=== PATIENT | male | born 1955 | race Caucasian/White ===

== ENCOUNTER → 2019-02-08 | Day surgery (SDC) | payer MEDICARE, OTHER ==
[2019-02-05 10:42] VITALS: BMI 30.2
[~2019-02-08] MED LIST: ALPRAZolam 0.25 MG TAB PO PRN; ALPRAZolam 0.5 MG TAB PO PRN; ASPIRIN 325 MG TAB PO STA; ATORVASTATIN 80 MG TAB PO STA; HEPARIN SODIUM 1,000 UN/ML (10ML VL) IV ONE; IOPAMIDOL-370 100ML BTL INJ ONE; IOPAMIDOL-370 50ML BTL INJ ONE; LIDOCAINE 1% INJ 10MG/ML (20 ML MDV) SQ ONE; MIDAZOLAM 2 MG/2 ML VIAL IVP ONE; NITROGLYCERIN SL TABS 0.4 MG TAB SUBLINGUAL PRN; SODIUM CHLORIDE 0.9% 1,000 ML IV SCH; SODIUM CHLORIDE 0.9% 1,000 ML in EMPTY BAG 1 BAG IV ONE; VERAPAMIL SYRINGE (5 MG/10 ML) INTRAARTER ONE; fentaNYL (PF) 50 MCG/ML 2 ML AMP IV ONE
[2019-02-08 07:09] VITALS: RESP 18; TEMP 98.2
--- NOTE | 2019-02-08 08:30 | CC ---
CARDIAC CATHETERIZATION REPORT DATE OF SERVICE: 02/08/2019 PROCEDURE: Left heart catheterization, coronary angiography and left ventriculography. PERFORMED BY: Dr. Sveta Delacruz. CLINICAL INFORMATION: Mr. Alejandro Etienne is a 63-year-old gentleman with a known history of hyperlipidemia, hypertension, and past history of smoking, who had an abnormal stress test and was advised coronary angiography. He had inferolateral reversible defect of a moderate size. Risks, benefits, options, rationale were explained. He was advised to have the procedure performed electively. He understood all details as did his and he was brought in for the procedure electively. PROCEDURE NOTE: Under local anesthesia and strict aseptic precautions, a 6-Spanish introducer was placed in the right radial artery. Using a JL3.5 and JR4.0 catheters, I performed coronary angiography and a pigtail catheter was used to perform an LV gram after checking LV pressures. The sheath was taken out and a TR band applied as per protocol. The saturation in the fingers of the right hand was 92%. Patient tolerated procedure well without complications. Results were discussed with the patient and family and I expect he will be discharged later on today and I will see him on Tuesday in the office on the at 4 p.m. CARDIAC CATHETERIZATION FINDINGS: The left ventricular end-diastolic pressure was about 8 mmHg without any gradient across aortic valve. CORONARY ANGIOGRAPHY FINDINGS: RIGHT CORONARY ARTERY: Technically a dominant vessel has no significant disease in the proximal portion. There is some smooth narrowing of 30% in the midportion. Distally it bifurcates into PDA and PLV. PDA is smaller. PLV is larger. again divides into 2 branches. There are minor irregularities in the distal branches of RCA. No significant disease noted. LEFT MAIN CORONARY ARTERY: This is a short patent disease-free vessel that bifurcates into LAD and circumflex. LEFT ANTERIOR DESCENDING CORONARY ARTERY: Good caliber vessel extends along the anterior wall, gives off 2 diagonal branches in the proximal portion, another diagonal branch in the midportion, several smaller septal branches runs all the way to the apex and curves over the apex to supply the inferoapical portion of left ventricle. Minor irregularities. No significant disease in the LAD system. LEFT POSTERIOR CIRCUMFLEX CORONARY ARTERY: Technically a nondominant vessel has a good caliber and gives off small 2 obtuse marginal branches proximally than distally continues as a posterior lateral/PDA branch and supplies a fair amount of myocardium. There are minor diffuse irregularities in the distal branch of the circumflex, but no significant disease is noted. LEFT VENTRICULOGRAM: This was performed in 30 degree HAN projection revealed left ventricle is of normal size with good systolic function without any segmental wall motion abnormality. Ejection fraction is about 55% to 60% without mitral regurgitation. FINAL IMPRESSION: This patient has a right dominant system. He has minor diffuse irregularities in the mid to distal branches of all vessels, but no significant disease is noted. He has noncritical coronary artery disease with normal filling pressures and normal ejection fraction of 55% to 60% by visual inspection. Filling pressures are normal and there is no gradient across aortic valve. RECOMMENDATION: Results were discussed with the patient and family. I expect he will be discharged later on today. I will decrease the metoprolol tartrate to 25 mg in the morning only and continue the statins and aspirin. I will see him in the office on 02/12/2019 at 4 p.m. The moderate conscious sedation time was 29 minutes. The patient was administered Versed and fentanyl. His oxygen saturation, hemodynamics and EKG were monitored closely. MMODL / IJN: [id number] /
--- NOTE | 2019-02-08 08:33 | LTR ---
February 08, 2019 Re: Alejandro Etienne Dear Dr. Crystal: Thank you for the opportunity to participate in the care of Mr. Alejandro Etienne. I am pleased to report to you that he does not have any significant obstructive CAD that requires intervention. His filling pressures are normal and LV function is normal. He is advised to continue risk factor modification and will decrease the metoprolol tartrate to 25 mg in the morning only. I expect he will be discharged later on today and I will see him in the office on Tuesday and then he will follow up with me on a regular basis. Thank you for your referral and please call for questions. With kindest regards. Sincerely yours, MD LINDA Baptiste / ANN MARIE: [phone] /
[2019-02-08 13:29] VITALS: BP 124/56; PULSE 54
== END | disposition home or self-care (01) ==
LOC: CATHCVL 06:22
PROVIDERS: ATTEND Internal Medicine Interventional Cardiology
DX: I25.10 Atherosclerotic heart disease of native coronary artery without angina pectoris (principal); R94.39 Abnormal result of other cardiovascular function study; I10 Essential (primary) hypertension; E78.5 Hyperlipidemia, unspecified; Z79.82 Long term (current) use of aspirin; Z79.899 Other long term (current) drug therapy; Z82.49 Family history of ischemic heart disease and other diseases of the circulatory system; Z87.891 Personal history of nicotine dependence
CPT/HCPCS: 93458; C1769; C1894; J2250; J2001; J3010; J1644; Q9967 ×2

== ENCOUNTER → 2024-01-20 | Outpatient (CLI) | payer OTHER ==
--- NOTE | 2024-01-20 20:28 | CT ---
EXAMINATION TYPE: CT pelvis wo con CT DLP: 767.8 mGycm, Automated exposure control for dose reduction was used. DATE OF EXAM: 01/20/2024 5:47 PM COMPARISON: None CLINICAL INDICATION:Male, 68 years old with history of M48.07 SPINAL STENOSIS, LUMBOSACRAL REGION; SI pain, r/o pelvic fracture, spinal stenosis. TECHNIQUE: Axial CT pelvis wo con;Sagittal and coronal reformats were created on a separate workstat ion. Contrast used: mL of , (none if empty) Oral contrast used: without Oral Contrast (none if empty) FINDINGS: BLADDER: Unremarkable REPRODUCTIVE: Unremarkable. ABDOMEN & PELVIS STOMACH AND BOWEL: No evidence of bowel obstruction. PERITONEUM/RETROPERITONEUM: No evidence of pneumoperitoneum or free fluid. VASCULATURE: No evidence of aortic aneurysm. MUSCULOSKELETAL: Postsurgical changes to the right hip hardware appears intact. Fixation hardware to the lower spine including L4-S1 appears intact. Mild osteophyte formation of the sacroiliac joints bi laterally. LYMPH NODES: No gross evidence for lymphadenopathy. SOFT TISSUE/ABDOMINAL WALL: Unremarkable IMPRESSION: 1. No evidence for pelvic fracture. 2. Hardware within the spine and right hip arthroplasty appear intact. 3. Sacroiliac joints demonstrate mild degeneration changes bilaterally.
--- NOTE | 2024-01-21 16:15 | MR ---
EXAMINATION TYPE: MR lumbar spine wo con DATE OF EXAM: 01/20/2024 7:49 PM CLINICAL INDICATION:Male, 68 years old with history of M48.07 SPINAL STENOSIS, LUMBOSACRAL REGION; PH H, Low back pain into right side, Hx back surgery COMPARISON: None TECHNIQUE: Multi planar, multi sequence imaging was performed utilizing: T1-weighted, T2-weighted, a nd turbo inversion recovery imaging of the lumbar spine. IV Contrast: cc . (None if empty) FINDINGS: Alignment: The lumbar vertebral bodies have preserved heights with surgically fixed grade 2 anterolis thesis of L5 on S1. Cord: The conus medullaris and the distal spinal cord appear unremarkable with regards to their signa l intensity and morphology. Bones/Discs: Severe degeneration changes with fixation at L4-L5 and S1. T12-L1: No evidence of significant spinal canal stenosis or neural foraminal stenosis. L1-L2: No evidence of significant spinal canal stenosis or neural foraminal stenosis. L2-L3: Eccentric right broad-based disc bulge with mild spinal canal stenosis. Facet joint arthropath y with mild to moderate neural foraminal stenosis. Mild bilateral neural foraminal stenosis. L3-L4: Disc bulge and facet joint arthropathy result in mild to moderate spinal canal and moderate to severe right and mild left neural foraminal stenosis. L4-L5: Disc bulge and facet joint arthropathy result in mild spinal canal and mild bilateral neural f oraminal stenosis. L5-S1: Surgical defects grade 2 anterolisthesis and facet joint arthropathy with mild spinal canal st enosis and mild bilateral neural foraminal stenosis. No significant spinal canal or neural foraminal stenosis in the remainder of the visualized levels. Other findings: None. IMPRESSION: 1. No significant spinal canal stenosis. 2. Post surgical changes with fixation at L4 L5 S1 with grade 2 anterolisthesis of L5 on S1. 3. Moderate disc degeneration with associated osteoarthritic changes with broad-based disc bulge L2- L3 which is eccentric to the right and results in mild spinal canal stenosis. 4. L3-L4 moderate to severe right neural foraminal stenosis.
== END | disposition home or self-care (01) ==
LOC: RADCTMAIN 17:11
PROVIDERS: ATTEND Neurological Surgery
DX: M48.07 Spinal stenosis, lumbosacral region (principal); M46.1 Sacroiliitis, not elsewhere classified; Z96.641 Presence of right artificial hip joint
CPT/HCPCS: 72148; 72192

== ENCOUNTER → 2024-03-01 | Outpatient (CLI) | payer OTHER ==
--- NOTE | 2024-03-01 14:24 | XR ---
EXAMINATION TYPE: XR Hip Complete RT DATE OF EXAM: 03/01/2024 COMPARISON: None HISTORY: Pain TECHNIQUE: 2V right hip FINDINGS: Right femoral prosthesis is present. Acetabular component is present. No acute fractures or dislocations evident. IMPRESSION: 1. No acute osseous abnormality right hip. Right hip prosthesis remains in position
== END | disposition home or self-care (01) ==
LOC: RADXRMAIN 13:34
PROVIDERS: ATTEND Neurological Surgery
DX: M25.551 Pain in right hip (principal); Z96.641 Presence of right artificial hip joint
CPT/HCPCS: 73502